=== PATIENT | female | born 1995 | race Caucasian/White ===

== ENCOUNTER 2019-02-11 13:59 | Emergency (ER) | payer BC ==
[2019-02-11] MEDS ORDERED: Orphenadrine 100 MG Tab.ER PO ONE (14:40)
[2019-02-11] MEDS ORDERED: Ketorolac 60 MG/2 ML SDV IM ONE (14:40)
--- NOTE | 2019-02-11 15:05 | EDM.PDOC ---
ED HPI GENERAL MEDICAL PROBLEM - General Chief Complaint: Trauma Stated Complaint: HORSE ACCIDENT FELL OFF Time Seen by Provider: 02/11/19 14:12 Source of Information: Reports: Patient, RN Notes Reviewed History Limitations: Reports: No Limitations - History of Present Illness INITIAL COMMENTS - FREE TEXT/NARRATIVE: Patient is a 24-year-old female who presents to the ED for the evaluation of injury sustained after she got bucked off a horse last night. The patient states this took place around 7 PM. She states that the horse. Sedimentation rate suddenly and she flew forward, she ended up hitting her left shoulder, and face into the ground and her back and backwards. She denies any loss of consciousness or blacking out. The mother states she was able to get up directly after the accident. The patient states that everything was somewhat okay last night, she did take some Motrin last night and took a shower and this seemed to help the pain. She notes that certain movements aggravate the pain. Mostly with bending, getting up from sitting down. She notes most of her pain is localized in her low back and pelvis area. However she feels muscle aches and soreness generalized all over. 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 Thoracic Pain Score (Numeric/FACES): 5 - Related Data Allergies Allergy/AdvReac Type Severity Reaction Status Date / Time cetirizine [From Zyrtec] Allergy Cannot Verified 02/11/19 14:18 Remember Penicillins Allergy Cannot Verified 02/11/19 14:18 Remember sulfamethoxazole Allergy Cannot Verified 02/11/19 14:18 [From Bactrim] Remember trimethoprim [From Bactrim] Allergy Cannot Verified 02/11/19 14:18 Remember Home Meds: Home Meds Orphenadrine [Norflex] 100 mg PO BID PRN #20 tab 02/11/19 [Rx] Past Medical History - Past Health History Medical/Surgical History: Denies Medical/Surgical History - Past Surgical History HEENT Surgical History: Reports: Adenoidectomy, Oral Surgery, Tonsillectomy Social & Family History - Family History Family Medical History: Noncontributory - Tobacco Use Smoking Status *Q: Former Smoker Used Tobacco, but Quit: Yes Month/Year Tobacco Last Used: 2016 Second Hand Smoke Exposure: No - Caffeine Use Caffeine Use: Reports: Coffee - Recreational Drug Use Recreational Drug Use: No Review of Systems - Review of Systems Review Of Systems: See Below Constitutional: Reports: No Symptoms Eyes: Reports: No Symptoms Ears: Reports: No Symptoms Nose: Reports: No Symptoms Mouth/Throat: Reports: No Symptoms Respiratory: Reports: No Symptoms Cardiovascular: Reports: No Symptoms GI/Abdominal: Reports: No Symptoms Genitourinary: Reports: No Symptoms Musculoskeletal: Reports: Back Pain (low back/pelvis pain), Muscle Stiffness ( low back) Skin: Reports: Bruising (to right inner mid thigh.) Neurological: Denies: Confusion, Dizziness, Headache, Syncope Psychiatric: Reports: No Symptoms ED EXAM, GENERAL - Physical Exam Exam: See Below Exam Limited By: No Limitations General Appearance: Alert, WD/WN, No Apparent Distress Eye Exam: Bilateral Eye: EOMI, Normal Inspection, PERRL Ears: Normal External Exam, Normal Canal, Hearing Grossly Normal, Normal TMs Nose: Normal Inspection Throat/Mouth: Normal Inspection, Normal Lips, Normal Teeth, Normal Gums, Normal Oropharynx, Normal Voice, No Airway Compromise Head: Atraumatic, Normocephalic Neck: Normal Inspection, Supple, Full Range of Motion, Tender Lateral (along the muscles). No: Tender Midline Respiratory/Chest: No Respiratory Distress, Lungs Clear, Normal Breath Sounds, No Accessory Muscle Use, Chest Non-Tender Cardiovascular: Normal Peripheral Pulses, Regular Rate, Rhythm, No Murmur GI/Abdominal: Normal Bowel Sounds, Soft, Non-Tender, No Distention, No Mass Back Exam: Normal Inspection, Decreased Range of Motion (d/t pain), Muscle Spasm (to lumbar area down through pelvis.) Extremities: Normal Inspection, Normal Range of Motion, Normal Capillary Refill Neurological: Alert, Oriented, Normal Cognition, Normal Gait, No Motor/Sensory Deficits Psychiatric: Normal Affect, Normal Mood Skin Exam: Warm, Dry, Intact, Normal Color, No Rash, Ecchymosis (to right inner mid thigh.). No: Wound/Incision Course - Vital Signs Last Recorded V/S: Last Vital Signs Temp 97.9 F 02/11/19 17:00 Pulse 81 02/11/19 14:07 Resp 18 02/11/19 17:00 BP 107/71 02/11/19 17:00 Pulse Ox 100 02/11/19 17:00 - Orders/Labs/Meds Orders: Active Orders 24 hr Category Date Time Status Lumbar Spine 2 or 3V [CR] Stat Exams 02/11/19 14:41 Taken Pelvis 1V or 2V [CR] Stat Exams 02/11/19 14:42 Taken Meds: Medications Discontinued Medications Generic Name Dose Route Start Last Admin Trade Name Jailyn PRN Reason Stop Dose Admin Ketorolac Tromethamine 30 mg 02/11/19 14:40 02/11/19 14:52 Toradol IM 02/11/19 14:41 30 mg ONETIME ONE Administration Orphenadrine Citrate 100 mg 02/11/19 14:40 02/11/19 14:52 Norflex PO 02/11/19 14:41 100 mg ONETIME ONE Administration - Re-Assessments/Exams Free Text/Narrative Re-Assessment/Exam: 02/11/19 15:09 Patient presents to the ED for evaluation of injury sustained after being worse. Have ordered 30 mg IM Toradol, 100 mg PO Norflex, and lumbar spine films to include the pelvis. Suspect this is more soft tissue injury due to muscle stiffness all over. 02/11/19 16:54 Patient states that she feels a little bit better from a Toradol and Norflex. Her lumbar spine x-rays and pelvis x-rays are within normal limits and do not demonstrate any bony or acute fracture at this time. These were reviewed with Dr. Serrano. We'll discharge the patient home with general recommendations. Of note, this was not a trauma minor, but the case was discussed with Dr. Serrano. Departure - Departure Time of Disposition: 16:55 Disposition: Home, Self-Care 01 Condition: Fair Clinical Impression: Low back pain Qualifiers: Chronicity: acute Back pain laterality: bilateral Sciatica presence: without sciatica Qualified Code(s): M54.5 - Low back pain - Discharge Information *PRESCRIPTION DRUG MONITORING PROGRAM REVIEWED*: No *COPY OF PRESCRIPTION DRUG MONITORING REPORT IN PATIENT ALL: No Prescriptions: Orphenadrine [Norflex] 100 mg PO BID PRN #20 tab PRN Reason: Spasms Instructions: Musculoskeletal Pain Referrals: PCP,None [Primary Care Provider] - Forms: ED Department Discharge Additional Instructions: You have been evaluated in the ED for your lower back pain. Your x-ray demonstrated no acute fracture or bony abnormality. Please use ice/heat as tolerated to the affected area. You may take tylenol 500 mg or ibuprofen 600mg q6 hrs for pain relief. Please do so until you have a tolerable level of pain with activity. Do not exceed 4000mg tylenol, Do not exceed 3200mg ibuprofen in a 24 hour time period. You have been provided with prescription for Norflex, a muscle relaxer, please take one tab 2 times daily as needed for muscle spasms. This was electronically sent to [facility] pharmacy located on [address]. You will likely be sore over the next few days, please expect this to last up to a week. Please return to ED if your symptoms should change or worsen. - My Orders Last 24 Hours: My Active Orders 02/11/19 14:41 Lumbar Spine 2 or 3V [CR] Stat 02/11/19 14:42 Pelvis 1V or 2V [CR] Stat - Assessment/Plan Last 24 Hours: My Active Orders 02/11/19 14:41 Lumbar Spine 2 or 3V [CR] Stat 02/11/19 14:42 Pelvis 1V or 2V [CR] Stat
--- NOTE | 2019-02-12 07:17 | CR ---
Lumbar spine: AP, lateral and coned-down lateral view centered to the lumbosacral junction were obtained. Comparison: No prior lumbar spine imaging. Vertebral body heights and disc spaces are maintained. Pedicles as well as transverse and spinous processes are intact. Minimal spondylolisthesis noted at L4-L5. Impression: 1. Minimal spondylolisthesis at L4-L5. No definite acute bony abnormality is appreciated. Note: If patient has continued lumbar spine symptoms, CT could then be considered. Diagnostic code #2
--- NOTE | 2019-02-12 07:17 | CR ---
Pelvis: AP view of the pelvis was obtained. Comparison: No prior pelvic imaging. Joint spaces within both hips are preserved. Sacroiliac joints are within normal limits. No fracture or other bony abnormality is appreciated. Impression: 1. No abnormality is identified on AP pelvis exam. Diagnostic code #1
== END 2019-02-11 17:03 | disposition home or self-care (01) ==
LOC: JD.ED 13:59
DX: S70.11XA Contusion of right thigh, initial encounter (principal); M54.5 Low back pain; M62.830 Muscle spasm of back; Z98.890 Other specified postprocedural states; Z87.891 Personal history of nicotine dependence; Z88.0 Allergy status to penicillin; Z88.1 Allergy status to other antibiotic agents; Z88.2 Allergy status to sulfonamides; V80.010A Animal-rider injured by fall from or being thrown from horse in noncollision accident, initial encounter
CPT/HCPCS: 72100; 72170; 96372; 99284; A9270; J1885; 99283